=== PATIENT | male | born 1940 | race Caucasian/White ===

== ENCOUNTER 2018-11-10 14:28 | Emergency (ER) | payer OTHER ==
[2018-11-10 14:37] VITALS: BP 115/61; PULSE 64; TEMP 98.5; BMI 20.3
--- NOTE | 2018-11-10 16:12 | PDOC ---
Documentation entered by Antonio Mooney SCRIBE, acting as scribe for Jackson Zimmer MD. Jackson Zimmer MD: This documentation has been prepared by the Jesica edward Elijah, SCRIBE, under my direction and personally reviewed by me in its entirety. I confirm that the documentation accurately reflects all work, treatment, procedures, and medical decision making performed by me. 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 Patient was lying in bed face down, rolled over , and then the tube pulled out. Patient has had the Tube since Mid-February of last year. Allergies: NKA Surgical History: Surgery for Tongue Cancer x2 years ago Past History - Past Medical History Allergies/Adverse Reactions: Allergies Allergy/AdvReac Type Severity Reaction Status Date / Time No Known Allergies Allergy Unverified 11/10/18 14:29 Home Medications: Ambulatory Orders Amlodipine Besylate 5 mg PO DAILY 11/10/18 Atorvastatin Ca [Lipitor] 10 mg PO HS 11/10/18 Fluoxetine HCl [Prozac] 20 mg PO DAILY 11/10/18 Irbesartan 300 mg PO DAILY 11/10/18 Review of Systems - Review of Systems Able to Perform ROS?: Yes Comments:: 11/10/18 15:20 ROS: Constitutional - no reported Fever, Chills, Abd/GI: + gtube dislodgement no reported abd pain, nausea, vomiting, blood per rectum, melena, diarrhea hematologic: no reported easy bruising, easy bleeding *Physical Exam - Vital Signs Last Vital Signs Temp Pulse Resp BP Pulse Ox 98.5 F 64 16 115/61 99 11/10/18 14:29 11/10/18 14:29 11/10/18 14:29 11/10/18 14:29 11/10/18 14:29 - Physical Exam Comments: 11/10/18 15:18 GENERAL: The patient is awake, alert, and fully oriented, Nontoxic - in no acute distress. ABDOMEN: Soft, nontender, No guarding, no rebound. No CVA tenderness, G-tube stoma with dried blood SKIN: Warm, Dry, normal turgor, ED Treatment Course - RADIOLOGY Radiology Studies Ordered: Category Date Time Status KUB (KID UR & BLAD) [RAD] Stat Radiology 11/10/18 15:17 Ordered Medical Decision Making - Medical Decision Making 11/10/18 15:19 78y M hx of tongue ca s/p Gtube placement (02/2018) presents after hs g tube was dislocated. Pt without other complaints Stoma site slightly bloody 22F G-tube placed without difficulty or complications awaiting KUB confirmatory study for placement anticipate d c pmd /surgeon 11/10/18 17:30 gtube placement confirmed via xray will dc with outpatient management I discussed the physical exam findings, ancillary test results and final diagnoses with the patient. I answered all of the patient's questions. The patient was satisfied with the care received and felt comfortable with the discharge plan and treatment plan. The patient will call their primary care physician within 24 hours to arrange follow-up and will return to the Emergency Department with any new, persistent or worsening symptoms. *DC/Admit/Observation/Transfer Diagnosis at time of Disposition: Dislodged gastrostomy tube - Discharge Dispostion Disposition: HOME Condition at time of disposition: Improved Decision to Admit order: No - Referrals - Patient Instructions Printed Discharge Instructions: How to Care for Your PEG Tube Additional Instructions: Follow up with your surgeon for further mangemnt of your g-tube Print Language: PORTUGUESE - Post Discharge Activity
== END 2018-11-10 17:33 | disposition home or self-care (01) ==
LOC: FER 14:28
DX: Z43.1 Encounter for attention to gastrostomy (principal); C02.9 Malignant neoplasm of tongue, unspecified
CPT/HCPCS: 74018-TC-FY; 99281-25

== ENCOUNTER 2019-07-19 14:26 | Emergency (ER) | payer OTHER ==
[2019-07-19 14:38] VITALS: BP 127/68; PULSE 69; TEMP 97; BMI 19.4
--- NOTE | 2019-07-19 15:34 | PDOC ---
Documentation entered by Jordana Poole SCRIBE, acting as scribe for Jackson Zimmer MD. Jackson Zimmer MD: This documentation has been prepared by the tommyibeVirgilio Maria, SCRIBE, under my direction and personally reviewed by me in its entirety. I confirm that the documentation accurately reflects all work, treatment, procedures, and medical decision making performed by me. 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 GTube tract is from Feb 2019. As per patient, he reports the tube fell out at 11pm last night, his attempted to place it back in unsuccessfully last night. Patient voices no other complaints including abd pain, n/v. Pt tolerates fluids and limited solid intake. Patient has had the tube since February of last year. Allergies: NKA Surgical History: Surgery for Tongue Cancer x2 years ago Past History - Past Medical History Allergies/Adverse Reactions: Allergies Allergy/AdvReac Type Severity Reaction Status Date / Time No Known Allergies Allergy Verified 07/19/19 14:29 Home Medications: Ambulatory Orders Amlodipine Besylate 5 mg PO DAILY 11/10/18 Fluoxetine HCl [Prozac] 20 mg PO DAILY 11/10/18 Irbesartan 300 mg PO DAILY 11/10/18 Cancer: Yes (OF TONGUE) COPD: No HTN: Yes - Surgical History GI Surgery: Yes (GASTOSTOMY TUBE) - Psycho Social/Smoking Cessation Hx Smoking History: Never smoked Hx Alcohol Use: Yes (SOCIAL) Drug/Substance Use Hx: No Review of Systems - Review of Systems Able to Perform ROS?: Yes Comments:: 07/19/19 15:10 Constitutional - Pt denies Fever, Chills, weakness, Abd/GI:+g tube dislodgement. Denies abd pain, nausea, vomiting, hematologic: denies anemia, easy bruising, easy bleeding *Physical Exam - Physical Exam 07/19/19 15:10 GENERAL: The patient is awake, alert, and fully oriented, Nontoxic - in no acute distress. ABDOMEN: Soft and nontender No guarding, no rebound. Tract is clean, dry, and non bloody. Medical Decision Making - Medical Decision Making 07/19/19 15:06 attempted to replace G tube however unable to pass. as it has been ~14 hrs since it was removed, likely started epithelialization. pt is albe to tolerate oral intake. will have him hydrate and manitain nutirion PO and fu with his surgeon on saturday return precautions were discssed Discharge - Discharge Information Problems reviewed: Yes Clinical Impression/Diagnosis: Dislodged gastrostomy tube Condition: Good Disposition: HOME - Admission No - Follow up/Referral Referrals: Lucio Gomez [Other] - Patient Discharge Instructions Additional Instructions: Follow up wtih your surgeon for further evaulation of your G-Tube for replacement. Make sure you are able to maintain hydration/nutrion orally. If you have any problems, you may return to the Emergency Department for further evaluation. Print Language: YAKUT - Post Discharge Activity
== END 2019-07-19 15:16 | disposition home or self-care (01) ==
LOC: FER 14:26
PROC: 0D20XUZ Change Feeding Device in Upper Intestinal Tract, External Approach (ICD-10-PCS; principal; 2019-07-19)
DX: Z43.1 Encounter for attention to gastrostomy (principal); I10 Essential (primary) hypertension; Z85.810 Personal history of malignant neoplasm of tongue
CPT/HCPCS: 99282-25